=== PATIENT | female | born 2000 | race Caucasian/White ===

== ENCOUNTER → 2019-08-20 13:45 | Outpatient (CLI) | payer BC, SELFPAY ==
[2019-08-20 14:15] LABS: Lipase 60 U/L (73-393)
== END ==
PROVIDERS: Family Provider Pediatrics; PCP Pediatrics
DX: R10.11 Right upper quadrant pain (principal)
CPT/HCPCS: 83690

== ENCOUNTER 2020-02-20 20:04 | Emergency (ER) | payer BC, SELFPAY ==
[2020-02-20 20:06] VITALS: BP 137/95; PULSE 82; RESP 17; TEMP 36.2; O2SAT 100; BMI 28.4
--- NOTE | 2020-02-20 20:27 | ED.VISSUMM ---
- ER Visit Summary Date of Service: 02/20/20 Chief Complaint: Headache History of Present Illness: The patient is a 19 F who presents with a headache that is been constant for the past week. Patient states her headache is behind her right eye but radiates around her head. Patient states the pain is worse with light. Patient admits to some numbness and tingling in her arms and legs. Patient denies any weakness. Patient admits to some spots in front of her eyes and photophobia. Patient admits to nausea but denies any vomiting. Patient does admit to some sinus pressure. Patient denies any fevers or chills. Physical Examination: Vital signs are stable. Patient is afebrile. Patient is in no acute distress. Pupils are equal, round, and reactive to light bilaterally. Extraocular muscles are intact. Oral mucosa is pink and moist. Neck is supple. Trachea is midline. There is no JVD noted. Heart was regular rate and rhythm. Lungs are clear and equal bilaterally. Abdomen is soft and nontender. Cranial nerves II through XII are intact. There are no focal motor or sensory deficits noted. Extremities are intact. There is no calf tenderness or edema. Emergency Department Course and Treatment: Patient was given IV fluids, Reglan, and Benadryl. Patient was feeling better on reevaluation. Patient was instructed to rest in a dark quiet room. Patient was instructed to follow-up with her primary care physician in 5 to 7 days for further evaluation. Patient understood and was agreeable with the plan. All questions were answered. Disposition: Discharge home Impression: Headache This note was generated with [employer] dictation software. It may contain incorrect words, spelling, and punctuation that were not noted in review of the chart prior to signing ED Disposition - Plan for ED Patient: Disposition: Home or Assisted Living Diagnosis: Headache Instructions: ED Headache Unspecified Referrals: NOT,DEFINED [NON-STAFF] - 3-5 Days
[2020-02-20] MEDS: Metoclopramide 10 MG/2 ML Vial IV (20:52)
[2020-02-20] MEDS: 0.9% Normal Saline 1,000 ML 999 ML IV (20:52)
[2020-02-20] MEDS: DiphenhydrAMINE 50 MG/ML Syringe 25 MG IV (20:52)
[2020-02-20 21:46] VITALS: BP 114/71; PULSE 68; RESP 19; O2SAT 99
== END 2020-02-20 21:48 | disposition home or self-care (01) ==
PROVIDERS: Emergency Provider Emergency Medicine
DX: R51 Headache (principal); F41.9 Anxiety disorder, unspecified; M54.2 Cervicalgia; M54.9 Dorsalgia, unspecified; R11.0 Nausea; R07.9 Chest pain, unspecified; J34.89 Other specified disorders of nose and nasal sinuses
CPT/HCPCS: 96361; 96374; 96375; 99283; J7030; A4216

== ENCOUNTER → 2020-02-25 15:59 | Outpatient (CLI) | payer BC, SELFPAY ==
[2020-02-20 20:06] VITALS: BMI 28.4
--- NOTE | 2020-02-25 16:01 | MRI_ITS ---
STUDY: MRI BRAIN WITH AND WITHOUT CONTRAST REASON FOR EXAM: Female, 19 years old. jasmine, visual disturbance,nausea -- new onset of jasmine TECHNIQUE: Standardized multiplanar fat and water weighted pulse sequences were obtained. IV Yes YES was administered for the contrast portion of the examination. COMPARISON: None FINDINGS: Normal size of the ventricles and extra-axial spaces for the patient''s age. Normal white matter tracts of the supratentorial brain. There is no evidence for recent intracranial ischemia or other cause of cytotoxic edema on diffusion weighted imaging (DWI). Normal bilateral basal ganglia. Normal thalami. There is no extra-axial fluid accumulation. Normal flow voids within the major intracranial circulation suggesting patency by spin echo criteria. Normal venous enhancement. There is no enhancing intra-axial or extra-axial abnormality. Normal sella turcica, pituitary gland, infundibular stalk, optic chiasm and hypothalamus. Normal tectal plate and pineal gland. Normal midbrain, marek and medulla. Normal cerebellum. Normal basal cisterns. Normal bilateral temporal bones. Normal bilateral internal auditory canals. No demonstrated orbital abnormality, within the constraints of a routine brain study. Normal visualized paranasal sinuses. Normal calvarium and skull base. Normal visualized soft tissue structures. Normal visualized upper cervical spine. MRI/Brain W/WO Contrast IMPRESSION: Normal unenhanced and enhanced MRI of the brain. Electronically Signed: Chet Cowart MD at 20:33 EDT , Service support ,
== END ==
PROVIDERS: PCP Family Medicine; Referring Provider Family Medicine; Visit Provider Family Medicine
DX: R51 Headache (principal); R11.0 Nausea; H53.9 Unspecified visual disturbance
CPT/HCPCS: 70553; A9575